=== PATIENT | female | born 1995 | race Caucasian/White ===

== ENCOUNTER 2017-11-22 11:18 | Emergency (ER) | payer SELFPAY ==
[~2017-11-22] VITALS: Ht 165.1 cm; Wt 70.5 kg
[2017-11-22 11:23] VITALS: BP 136/70; PULSE 89; TEMP 97.7
[2017-11-22] MEDS ORDERED: YAZ 28 3 MG-0.01 TAB PO (11:25)
[2017-11-22] MEDS ORDERED: DOXYCYCLINE 10100 MG PO (11:51)
[2017-11-22] MEDS ORDERED: CIPRO 500MG TA500 MG PO (11:57)
== END 2017-11-22 12:07 | disposition home or self-care (01) ==
LOC: COL.ER 11:18
DX: S61.217A Laceration without foreign body of left little finger without damage to nail, initial encounter (principal); Z98.818 Other dental procedure status; W25.XXXA Contact with sharp glass, initial encounter; Y92.89 Other specified places as the place of occurrence of the external cause; Y99.0 Civilian activity done for income or pay